=== PATIENT | male | born 1975 ===

== ENCOUNTER 2017-07-06 20:57 | Inpatient (IN) | payer MEDICAID ==
--- NOTE | 2017-07-06 21:15 | C.PDOC ---
History Of Present Illness Patient presents to the ED for detoxification bed s/p heroin use 2 hours prior to arrival. Patient is currently asymptomatic. Time Seen by Provider: 07/06/17 21:15 Chief Complaint (Nursing): Psychiatric Evaluation History Per: Patient History/Exam Limitations: no limitations Onset/Duration Of Symptoms: Hrs Current Symptoms Are (Timing): Still Present Suicide/Self Injury Attempted (Context): None Modifying Factor(s): Narcotics Severity: Moderate Pain Scale Rating Of: 4 Associated Symptoms: denies: Suicidal Thoughts, Suicidal Plan Involuntary Hold By: None Recent travel outside of the [place]: No Additional History Per: Patient Past Medical History Reviewed: Historical Data, Nursing Documentation, Vital Signs Vital Signs: Last Vital Signs Temp 98 F 07/06/17 21:13 Pulse 86 07/06/17 21:13 Resp 20 07/06/17 21:13 BP 145/90 07/06/17 21:13 Pulse Ox 98 07/06/17 21:13 Family History: States: No Known Family Hx Review Of Systems Constitutional: Negative for: Fever Cardiovascular: Negative for: Chest Pain Respiratory: Negative for: Shortness of Breath Gastrointestinal: Negative for: Abdominal Pain Genitourinary: Negative for: Dysuria Musculoskeletal: Negative for: Back Pain Skin: Negative for: Rash Neurological: Negative for: Numbness Psych: Positive for: Anxiety Physical Exam - Physical Exam Appears: No Acute Distress Skin: Warm, Dry Head: Normacephalic Eye(s): bilateral: Normal Inspection Oral Mucosa: Moist Neck: Supple Chest: Symmetrical Cardiovascular: Rhythm Regular, No Murmur Respiratory: No Rales, No Rhonchi, No Wheezing Gastrointestinal/Abdominal: Soft, No Tenderness Back: Normal Inspection Extremity: Normal ROM Extremity: Bilateral: Atraumatic Neurological/Psych: Oriented x3, Normal Speech, Normal Cognition Gait: Steady ED Course And Treatment - Laboratory Results Result Diagrams: 07/06/17 21:24 07/06/17 21:24 Disposition Discussed With : Nico Macario Comment: accepted the pt on his service and took over the care at 11PM Counseled Patient/Family Regarding: Studies Performed, Diagnosis - Disposition Disposition: HOSPITALIZED Disposition Time: 21:15 Condition: FAIR Forms: [employer] (Beninese) - Clinical Impression Clinical Impression: Heroin dependence - Scribe Statement The provider has reviewed the documentation as recorded by the Scribe Scribe Attestation: Ami Sparrow Attestation: All medical record entries made by the Kyara were at my direction and personally dictated by me. I have reviewed the chart and agree that the record accurately reflects my personal performance of the history, physical exam, medical decision making, and the department course for this patient. I have also personally directed, reviewed, and agree with the discharge instructions and disposition. Decision To Admit - Pt Status Changed To: Hospital Disposition Of: Inpatient - Admit Certification Admit to Inpatient:: After my assessment, the patient will require hospitalization for at least two midnights. This is because of the severity of symptoms shown, intensity of services needed, and/or the medical risk in this patient being treated as an outpatient. - InPatient: Physician Admission Certification: I certify that this patient requires 2 or more midnights of care for the following reason:: After my assessment, the patient will require hospitalization for at least two midnights. This is because of the severity of symptoms shown, intensity of services needed, and/or the medical risk in this patient being treated as an outpatient. - . Bed Request Type: Detox Admitting Physician: Nico Macario Patient Diagnosis: Heroin dependence
[2017-07-06 21:41] LABS: ALB/GLOB RATIO 1.1 (1.0-2.1); ALBUMIN 4.5 g/dL (3.5-5.0); ALT/SGPT 70 U/L (21-72); AST/SGOT 55 U/L (17-59); BLOOD UREA NITROGEN 12 mg/dL (9-20); CALCIUM 9.4 mg/dl (8.6-10.4); GFR AFRICAN-AMERICAN > 60; GFR NON-AFRICAN AMERICAN > 60
[2017-07-06 21:47] LABS: BASO # 0.1 K/uL (0.0-0.2); BASO % 0.7 % (0.0-2.0); EOS # 0.1 K/uL (0.0-0.7); HEMOGLOBIN 16.1 g/dL (12.0-18.0); LYMPH # 1.8 K/uL (1.0-4.3); LYMPH % 20.1 % (20.0-40.0); MEAN CELL VOLUME 89.7 fL (80.0-94.0); MEAN CORPUSCULAR HEMOGLOBIN 30.4 pg (27.0-31.0); MEAN CORPUSCULAR HGB CONC 33.9 g/dL (33.0-37.0); MEAN PLATELET VOLUME 8.8 fL (7.2-11.7); MONO # 0.6 K/uL (0.0-0.8); MONO % 6.5 % (0.0-10.0); NEUT # 6.3 K/uL (1.8-7.0); NEUT % 71.7 % (50.0-75.0); NRBC % 0.1 % (0.0-2.0); RBC 5.29 Mil/uL (4.40-5.90); WHITE BLOOD COUNT 8.8 K/uL (4.8-10.8)
[2017-07-06 22:10] LABS: URINE BACTERIA OCC (<OCC); URINE BILIRUBIN NEGATIVE (NEGATIVE); URINE BLOOD NEGATIVE (NEGATIVE); URINE CLARITY Hazy (Clear); URINE COLOR Yellow (YELLOW); URINE GLUCOSE (UA) NORMAL (Normal); URINE LEUKOCYTE ESTERASE NEG Leu/uL (Negative); URINE NITRATE NEGATIVE (NEGATIVE); URINE PROTEIN NEGATIVE (NEGATIVE)
[2017-07-06 22:22] LABS: BARBITURATES, UR NEGATIVE (NEGATIVE); BENZODIAZEPINES, UR NEGATIVE (NEGATIVE); PHENCYCLIDINE, UR NEGATIVE (NEGATIVE)
[2017-07-06 22:26] LABS: OPIATES, UR POSITIVE (NEGATIVE)
[2017-07-06] MEDS ORDERED: Aluminum Hydroxide/Magnesium Hydroxide Susp (30 mL) PO PRN (23:53)
--- NOTE | 2017-07-07 01:32 | PCM.BM ---
<Seema Peña - Last Filed: 07/07/17 01:31> Treatment Plan Problems - Problems identified on initial assessmt ineffective Coping Skills Date Initiated: 07/07/17 Time Initiated: 01:31 Assessment reference: NA Status: Active Treatment assets and liabiliti Patient Assests: ADL independent Patient Liabilities: substance abuse - Milieu Protocol Maintain good personal hygiene: daily Encourage regular showers, daily Remind patient to perform daily oral care, other Assist patient to perform ADL's Maintain personal safety: every shift Educate patient to report safety concerns to staff, every shift Monitor environment for contraband/sharps Medication safety: Monitor for expected outcome, potential side effects: every shift, Assess barriers to learning: every shift, Assess readiness for medication education: every shift <Wendy Farmer - Last Filed: 07/08/17 23:51> - Diagnosis (1) Opioid use disorder, severe, dependence Status: Acute Interventions: 07/08/17 23:51 * Assess 7x/week regarding severity of withdrawal * Educate regarding risks, benefits, side effects and alternatives of medications * Use Motivational Interviewing for abstinence * Use CBT for relapse prevention * Medication management for withdrawal symptoms * Encourage medication assisted treatment *
--- NOTE | 2017-07-07 12:10 | PCM.PSYCH ---
Initial Psychiatric Evaluation - Initial Psychiatric Evaluation Type of Admission: Voluntary Legal Status: Capacity Chief Complaint (in patient's own words): I came here to get help.' History of Present Illness and Precipitating Events: This is a 41 years old HM, who lives with is girlfriend, and currently unemployed, with a history of opiate use disorder and cocaine use disorder came to the ED to get help in heroin detox. Patient identified that he lost his job due to his addiction problems and his relationship with his significant other is in jeopardy due to current use. Patient reported using 10 bags od heroin per day (nasal/IV) since age 17. Patient reported infrequent cocaine use. Patient noted using 1 bottle about 1 month ago. Patient also reported use of Xanax, Klonopin and Seroquel about 2 days ago. Patient noted using these substances about 3-4 months ago. Patient reported history of detox at [facility], however, unable to recall the year of admisison. Patient also noted history with AA and NA although not currently connected to any of these support groups. Patient reports withdrawal symptoms sweating, headaches, anxiety, nausea, abdominal cramps and joint pains. Reports irritable mood but denies any feelings of hopelessness and helplessness. Denies any suicidal ideation or homicidal ideation. Patient denies any auditory or visual hallucinations or any psychotic symptoms. Denies any manic symptoms. Denies any other substance abuse. Past medical history Asthma Current Medications: Active Medications Generic Name Dose Route Start Last Admin Trade Name Freq PRN Reason Stop Dose Admin Acetaminophen 650 mg 07/06/17 23:53 Tylenol 325mg Tab PO Q4H PRN Fever greater than 101 F Al Hydrox/Mg Hydrox/Simethicone 30 ml 07/06/17 23:53 Maalox 30 Ml PO TID PRN Indigestion / Heartburn Clonidine HCl 0.1 mg 07/06/17 23:53 Catapres PO Q8 PRN COWS Score More or Equal to 5 Hydroxyzine HCl 25 mg 07/06/17 23:53 Atarax PO Q6 PRN Agitation Loperamide HCl 2 mg 07/06/17 23:53 Imodium PO Q8 PRN Diarrhea Ondansetron HCl 4 mg 07/06/17 23:53 Zofran Tab PO Q8 PRN Nausea/Vomiting Pseudoephedrine HCl 60 mg 07/06/17 23:53 Sudafed Tab PO QID PRN Nasal/Sinus Congestion Past Psychiatric History - Past Psychiatric History Previous Treatment History: None Pertinent Medical Hx (Current Medical&Sleep Prob, Allergies): Allergies Allergy/AdvReac Type Severity Reaction Status Date / Time No Known Allergies Allergy Unverified 07/06/17 21:18 Review of Systems - Review of Systems All systems: reviewed and no additional remarkable complaints except - Psychiatric Psychiatric: Anxiety, Irritability. absent: Auditory Hallucinations, Suicidal Ideation Mental Status Examination - Personal Presentation Personal Presentation: Looks stated age - Affect Affect: Constricted - Motor Activity Motor Activity: Calm - Reliability in Providing Information Reliability in Providing Information: Fair - Speech Speech: Organized - Mood Mood: Anxious - Formal Thought Process Formal Thought Process: No Impairment - Obsessions/Compulsions Obsessions: No Compulsions: No - Cognitive Functions Orientation: Person, Place, Situation, Time Sensorium: Alert Attention/Concentration: Attentive Abstract Thinking: Joy Estimate of Intelligence: Below average Judgement: Imparied, as evidence by: Poor judgement, Intact, as evidence by: Insight regarding need for hospitalization - Risk Risk: Withdrawal, Diminished functioning - Limitations Limitations: Living alone DSM 5 DX - DSM 5 DSM 5 Diagnosis: Opioid use disorder severe Opioid withdrawal Cocaine use disorder severe - Recommended/Plan of Treatment Treatment Recommendations and Plan of Treatment: Opioid use disorder severe -CBT -Psychoeducation -Supportive therapy, individual therapy -Use GA for abstinence Opioid withdrawal -CBT -Psychoeducation -Supportive therapy, individual therapy -Clonidine when necessary -Methadone taper Cocaine use disorder severe -Monitor signs and symptoms -Use GA for abstinence Asthma -Continue prescribed medications - Smoking Cessation Smoking Cessation Initiated: No
--- NOTE | 2017-07-08 15:00 | PCM.PYCHPN ---
Psychiatric Progress Note - Psychiatric Progress Note Patient seen today, length of contact: 16 min Patient Chief Complaint: "I'm doing okay" Problems Identified/Issues Discussed: The pt is seen, chart reviewed, case discussed with staff. Support given, CBT and SD used briefly No new symptoms reported, improving slowly and needs more time No SEs from medications, risks discussed. After care discussed, patient states that he is interested in a long-term IOP following discharge, and may even consider the possibility of methadone/ suboxone maintenance Medication Change: Yes (detox changes daily) Medical Record Reviewed: Yes Mental Status Examination - Cognitive Function Orientation: Person, Place, Situation, Time Memory: Intact Attention: WNL Concentration: WNL Association: WNL Fund of Knowledge: WNL - Mood Mood: Anxious - Affect Affect: Constricted - Speech Speech: Appropriate - Formal Thought Process Formal Thought Process: No Impairment - Suicidal Ideation Suicidal Ideation: No - Homicidal Ideation Homicidal Ideation: No Goal/Treatment Plan - Goal/Treatment Plan Need for Continued Stay: Remain at risks for inpatient hospitalization, Discharge may exacerbated symptoms, Severe functional impairment Progress Toward Problem(s) and Goals/Treatment Plan: Continue medications Support and psychoeducation daily Attend groups and activities daily After care planning by ARMAND Estimated Date of D/C: 07/10/17 - Smoking Cessation Smoking Cessation Initiated: No
[2017-07-08 19:56] VITALS: RESP 18
--- NOTE | 2017-07-09 10:00 | PCM.PYCHDC ---
Mental Status Examination - Mental Status Examination Orientation: Person, Place, Situation, Time Memory: Intact Mood: Neutral Affect: Broad Speech: Appropriate Attention: WNL Concentration: WNL Association: WNL Fund of Knowledge: WNL Formal Thought Process: No Impairment Suicidal Ideation: No Current Homicidal Ideation?: No Discharge Summary - Discharge Note Reason for Hospitalization: Opioid use d/o Opioid withdrawal Consultations:: List each consultation separately and include: 1. Reason for request. 2. Findings. 3. Follow-up Summary of Hospital Course include:: 1. Description of specific treatment plan utilized for patients during their course of treatmen. 2. Summarize the time- course for resolution of acute symptoms and/or regressed behaviors. 3. Describe issues identified and worked on during hospitalization. 4. Describe medication utilized. 5. Describe medical problems identified and treated. 6. Reassessment of suicide risk Summary of Hospital Course: HPI: This is a 41 years old HM, who lives with is girlfriend, and currently unemployed, with a history of opiate use disorder and cocaine use disorder came to the ED to get help in heroin detox. Patient identified that he lost his job due to his addiction problems and his relationship with his significant other is in jeopardy due to current use. Patient reported using 10 bags od heroin per day (nasal/IV) since age 17. Patient reported infrequent cocaine use. Patient noted using 1 bottle about 1 month ago. Patient also reported use of Xanax, Klonopin and Seroquel about 2 days ago. Patient noted using these substances about 3-4 months ago. Patient reported history of detox at [facility], however, unable to recall the year of admisison. Patient also noted history with AA and NA although not currently connected to any of these support groups. Patient reports withdrawal symptoms sweating, headaches, anxiety, nausea, abdominal cramps and joint pains. Reports irritable mood but denies any feelings of hopelessness and helplessness. Denies any suicidal ideation or homicidal ideation. Patient denies any auditory or visual hallucinations or any psychotic symptoms. Denies any manic symptoms. Denies any other substance abuse. Hospital Course: The pt was admitted and started on treatment with psychotherapy, support, psychoeducation and medications. IA and CBT used. The pt attended groups and activities, as well as milieu therapy. All the risks and benefits of medications were discussed and the patient understood and agreed.The pt completed three days of detox but left one day early because of the impending snow storm coming tomorrow. Patient stated that he felt fine, does not have any more withdrawal symptoms and feels well enough to go home without further follow -up. It was recommended that he stay one more day, however patient insisted that he felt well and would like to return home. He expressed his understanding of the risks of returning home today without specified follow-up. No were other issues noted. - Diagnosis (1) Opioid use disorder, severe, dependence Current Visit: Yes Status: Acute - Final Diagnosis (DSM 5) Condition upon Discharge: FAIR Disposition: HOME/ ROUTINE Follow-up Treatment Plan: Continue below medications after discharge. Follow after care plan as discussed. Use relapse prevention skills Return to ER or call 911 if suicidal, homicidal or symptoms relapse. Stay away from stress, alcohol and drugs. See primary doctor regularly and get labs.
[2017-07-09 10:33] VITALS: BP 109/71; PULSE 97; TEMP 97.9; O2SAT 99
== END 2017-07-09 11:35 | disposition home or self-care (01) | DRG 895 ==
LOC: C.ER 20:57 → C.7D 23:04
PROVIDERS: ADMIT Psychiatry & Neurology Psychiatry; ATTEND Psychiatry & Neurology Psychiatry
PROC: HZ2ZZZZ Detoxification Services for Substance Abuse Treatment (ICD-10-PCS; principal; 2017-07-06)
PROC: HZ59ZZZ Individual Psychotherapy for Substance Abuse Treatment, Supportive (ICD-10-PCS; 2017-07-06)
PROC: HZ56ZZZ Individual Psychotherapy for Substance Abuse Treatment, Psychoeducation (ICD-10-PCS; 2017-07-06)
DX: F11.23 Opioid dependence with withdrawal (principal); F14.20 Cocaine dependence, uncomplicated; F41.9 Anxiety disorder, unspecified; J45.909 Unspecified asthma, uncomplicated; Z72.0 Tobacco use